=== PATIENT | female | born 1925 | race Asian ===

== ENCOUNTER 2016-04-27 10:51 | Emergency (ER) | payer MEDICARE, OTHER ==
--- NOTE | 2016-04-27 11:00 | ER Document Report ---
ED Medical Screen (RME) - General Stated Complaint: FELL/DIZZINESS Mode of Arrival: Wheelchair Information source: Patient, Relative Notes: Patient has had dizzy spells for the past 3 weeks. Patient fell at home a few days ago hurting her left lower rib area. Patient with nausea and vomiting today. No diarrhea. Patient did not take her blood pressure medication today. Patient reports headache that started last night that is improved today but still there. hx: Hypertension, dyslipidemia I have greeted and performed a rapid initial assessment of this patient. A comprehensive ED assessment and evaluation of the patient, analysis of test results and completion of the medical decision making process will be conducted by additional ED providers. - Related Data Allergies/Adverse Reactions: No Known Allergies Allergy (Verified 04/27/16 10:56) Physical Exam - Respiratory Respiratory status: No respiratory distress Chest status: Tender - Left lower anterior costal tenderness
[2016-04-27 11:49] LABS: ABSOLUTE EOSINOPHILS # (AUTO) 0.1 10^3/uL (0.0-0.6); ABSOLUTE LYMPHOCYTES (AUTO) 1.8 10^3/uL (0.5-4.7); ABSOLUTE MONOCYTES (AUTO) 0.5 10^3/uL (0.1-1.4); ABSOLUTE NEUT (AUTO) 5.9 10^3/uL (1.7-8.2); BASOPHILS % (AUTO) 0.5 % (0-2); EOSINOPHILS % (AUTO) 1.6 % (0-6); HEMATOCRIT 32.3 % (36.0-47.0); HEMOGLOBIN 10.8 g/dL (12.0-15.5); HGB HCT DIFFERENCE 0.1; LYMPHOCYTES % (AUTO) 21.4 % (13-45); MEAN CORPUSCULAR HEMOGLOBIN 33.6 pg (27.0-33.4); MEAN CORPUSCULAR HGB CONC 33.5 g/dL (32.0-36.0); MEAN CORPUSCULAR VOLUME 100 fl (80-97); MONOCYTES % (AUTO) 6.1 % (3-13); RED BLOOD COUNT 3.22 10^6/uL (3.72-5.28); RED CELL DISTRIBUTION WIDTH 13.4 % (11.5-14.0); SEGMENTED NEUTROPHILS % (AUTO) 70.4 % (42-78); WHITE BLOOD COUNT 8.4 10^3/uL (4.0-10.5)
[2016-04-27 11:55] LABS: ALANINE AMINOTRANSFERASE 31 U/L (9-52); ALBUMIN 3.9 g/dL (3.5-5.0); ALKALINE PHOSPHATASE 85 U/L (38-126); ANION GAP 12 (5-19); ASPARTATE AMINO TRANSFERASE 33 U/L (14-36); BILIRUBIN,TOTAL 0.9 mg/dL (0.2-1.3); BLOOD UREA NITROGEN 26 mg/dL (7-20); CALCIUM 9.7 mg/dL (8.4-10.2); CARBON DIOXIDE 25 mmol/L (22-30); CHLORIDE 103 mmol/L (98-107); CREATINE KINASE 157 U/L (30-135); CREATININE RESULT 1.15 mg/dL (0.52-1.25); GLUCOSE 115 mg/dL (75-110); LIPASE 146.3 U/L (23-300); MAGNESIUM 2.1 mg/dL (1.6-2.3); POTASSIUM 4.8 mmol/L (3.6-5.0); SODIUM 139.5 mmol/L (137-145); TOTAL PROTEIN 7.8 g/dL (6.3-8.2)
[2016-04-27] MEDS ORDERED: MECLIZINE HCL 25 MG TABLET PO ONE (11:59)
[2016-04-27] MEDS ORDERED: CLONIDINE HCL 0.1 MG TABLET PO ONE (11:59)
[2016-04-27 12:21] LABS: CREATINE KINASE MB 0.23 ng/mL (<4.55)
[2016-04-27 12:22] LABS: TROPONIN I < 0.012 ng/mL
[2016-04-27 13:32] LABS: APPEARANCE,URINE CLEAR; BILIRUBIN,URINE NEGATIVE (NEGATIVE); GLUCOSE, URINE NEGATIVE (NEGATIVE); KETONES,URINE NEGATIVE (NEGATIVE); LEUKOCYTE ESTERASE,URINE NEGATIVE (NEGATIVE); NITRITE,URINE NEGATIVE (NEGATIVE); PROTEIN,URINE 30 mg/dL (NEGATIVE); URINE SPECIFIC GRAVITY 1.012; UROBILINOGEN,URINE NEGATIVE mg/dL (<2.0)
--- NOTE | 2016-04-27 13:52 | ER Document Report ---
ED General - General Chief Complaint: Dizziness Stated Complaint: FELL/DIZZINESS Mode of Arrival: Wheelchair TRAVEL OUTSIDE OF THE [place] IN LAST 30 DAYS: No - HPI Patient complains to provider of: multiple falls dizziness Notes: Patient coming in today for evaluation after having multiple falls and dizziness ongoing for last 3 weeks. Patient states dizziness happens when she is ambulating or when she change in position. Patient does have a history of hypertension states that she did not take her blood pressure medications morning as that she did not eat any food. Patient denies any direct head trauma patient otherwise upon evaluation is lying in stretcher comfortably with no complaints of her dizziness. Patient denies recent antibiotics travel change in medications recent trauma states last fall was approximately 2 days ago - Related Data Allergies/Adverse Reactions: No Known Allergies Allergy (Verified 04/27/16 10:56) Past Medical History - General Information source: Patient, Relative - Social History Smoking Status: Unknown if Ever Smoked Chew tobacco use (# tins/day): No Frequency of alcohol use: None Drug Abuse: None Family History: Reviewed & Not Pertinent Patient has suicidal ideation: No Patient has homicidal ideation: No Renal/ Medical History: Denies: Hx Peritoneal Dialysis Review of Systems - Review of Systems Constitutional: No symptoms reported EENT: No symptoms reported Cardiovascular: No symptoms reported Respiratory: No symptoms reported Gastrointestinal: No symptoms reported Genitourinary: No symptoms reported Female Genitourinary: No symptoms reported Musculoskeletal: No symptoms reported Skin: No symptoms reported Hematologic/Lymphatic: No symptoms reported Neurological/Psychological: Other - Dizziness frequent falls -: Yes All other systems reviewed and negative Physical Exam - Vital signs Vitals: Temp Pulse Resp BP Pulse Ox 97.8 F 103 H 16 207/106 H 99 04/27/16 10:57 04/27/16 10:57 04/27/16 10:57 04/27/16 10:57 04/27/16 10:57 Interpretation: Normal - General General appearance: Appears well, Alert - HEENT Head: Normocephalic, Atraumatic Eyes: Normal Pupils: PERRL - Respiratory Respiratory status: No respiratory distress Chest status: Nontender Breath sounds: Normal Chest palpation: Normal - Cardiovascular Rhythm: Regular Heart sounds: Normal auscultation Murmur: No - Abdominal Inspection: Normal Distension: No distension Bowel sounds: Normal Tenderness: Nontender Organomegaly: No organomegaly - Back Back: Normal, Nontender - Extremities General upper extremity: Normal inspection, Nontender, Normal color, Normal ROM , Normal temperature General lower extremity: Normal inspection, Nontender, Normal color, Normal ROM , Normal temperature, Normal weight bearing. No: Emanuel's sign - Neurological Neuro grossly intact: Yes Cognition: Normal Orientation: AAOx4 [place] Coma Scale Eye Opening: Spontaneous R[place]un Coma Scale Verbal: Oriented [place] Coma Scale Motor: Obeys Commands [place]oy Coma Scale Total: 15 Speech: Normal Motor strength normal: LUE, RUE, LLE, RLE Sensory: Normal - Psychological Associated symptoms: Normal affect, Normal mood - Skin Skin Temperature: Warm Skin Moisture: Dry Skin Color: Normal Course - Re-evaluation Re-evalutation: 04/27/16 15:08 Patient's orthostatics were positive patient's blood pressure went from approximate systolic of 192 a systolic of 150 further increase in her heart rate greater than 10 beats. Patient was most magneton. More likely patient is suffering from orthostatic dizziness. Explained this to the patient we did give patient a copy of orthostatic testing here blood work and CT scan of the head reveal no other pathology. Recommended patient follow-up with her primary care physician for further management also possible change of blood pressure medications. At this time we will treat the patient with meclizine and compression stockings. Patient agrees with plan to be discharged home. Patient was encouraged to continue to use her walker at home - Vital Signs Vital signs: Temp Pulse Resp BP Pulse Ox 97.5 F 84 19 156/97 H 98 04/27/16 14:14 04/27/16 13:24 04/27/16 13:56 04/27/16 13:56 04/27/16 13:56 - Laboratory Result Diagrams: 04/27/16 11:38 04/27/16 11:10 Laboratory results interpreted by me: 04/27/16 04/27/16 04/27/16 11:10 11:38 13:15 RBC 3.22 L Hgb 10.8 L Hct 32.3 L MCV 100 H MCH 33.6 H BUN 26 H Est GFR ( Amer) 54 L Est GFR (Non-Af Amer) 44 L Glucose 115 H Creatine Kinase 157 H Urine Protein 30 H Urine Blood SMALL H Discharge - Discharge Clinical Impression: Orthostatic dizziness Condition: Good Disposition: HOME, SELF-CARE Instructions: Dizziness ([facility]), Meclizine ([facility]) Additional Instructions: I do believe that your dizziness may be due to orthostasis or whenever you changed position there is a change or a drop in blood pressure. However recommend following up with your primary care physician for possible adjustment of your blood pressure medications. Return to ER symptoms worsen. Take medications as prescribed We will try a short course of meclizine to see this also is in your dizziness at also recommended wearing compression stockings. Prescriptions: Compression Socks, Medium [Futuro Restoring] 1 each MC DAILY #1 each Meclizine HCl [Antivert 25 mg Tablet] 25 mg PO TID PRN #21 tablet PRN Reason: Referrals: CLARA PINEDA DO [Primary Care Provider] - Follow up as needed
[2016-04-27 14:08] VITALS: BP 156/97
--- NOTE | 2016-04-27 22:00 | EKG REPORT ---
SEVERITY:- ABNORMAL ECG - SINUS RHYTHM CONSIDER LEFT VENTRICULAR HYPERTROPHY : Confirmed by: Heriberto Gotti 27-Apr-2016 21:59:31
== END 2016-04-27 14:14 | disposition home or self-care (01) ==
LOC: ER 10:51
DX: R42 Dizziness and giddiness (principal); W19.XXXA Unspecified fall, initial encounter
CPT/HCPCS: 93005; 99284; 51701; 36415; 82553; 82550; 83690; 83735; 85025; 80053; 81001; 84484; 71020; 70450; 93010; A9270 ×2

== ENCOUNTER 2016-05-12 11:27 | Emergency (ER) | payer MEDICARE, OTHER ==
--- NOTE | 2016-05-12 11:49 | ER Document Report ---
ED Medical Screen (RME) - General Stated Complaint: RECTAL BLEEDING Time seen by provider: 11:44 Mode of Arrival: Wheelchair Information source: Patient Notes: 89-year-old female with a history of rectal bleeding last year in [place] equiring a blood transfusion is complaining of rectal bleeding night and Thursday after having a hard constipated stool causing anal and vaginal pain . Had a normal bowel movement today with only a blood stain. Dr. Crystal Center to the emergency room to be evaluated. I have greeted and performed a rapid initial assessment of this patient. A comprehensive ED assessment, evaluation of the patient, analysis of test results , and completion of the medical decision making process will be conducted by additional ED providers. TRAVEL OUTSIDE OF THE [place] IN LAST 30 DAYS: No - Related Data Allergies/Adverse Reactions: No Known Allergies Allergy (Verified 04/27/16 10:56) Past Medical History Renal/ Medical History: Denies: Hx Peritoneal Dialysis Physical Exam - Vital signs Vitals: Temp Pulse Resp BP Pulse Ox 97.4 F 107 H 24 H 182/94 H 99 05/12/16 11:36 05/12/16 11:36 05/12/16 11:36 05/12/16 11:36 05/12/16 11:36 Course - Vital Signs Vital signs: Temp Pulse Resp BP Pulse Ox 97.4 F 107 H 24 H 182/94 H 99 05/12/16 11:36 05/12/16 11:36 05/12/16 11:36 05/12/16 11:36 05/12/16 11:36
[2016-05-12 12:20] LABS: ABSOLUTE EOSINOPHILS # (AUTO) 0.2 10^3/uL (0.0-0.6); ABSOLUTE LYMPHOCYTES (AUTO) 1.8 10^3/uL (0.5-4.7); ABSOLUTE MONOCYTES (AUTO) 0.5 10^3/uL (0.1-1.4); ABSOLUTE NEUT (AUTO) 3.5 10^3/uL (1.7-8.2); BASOPHILS % (AUTO) 0.7 % (0-2); EOSINOPHILS % (AUTO) 2.8 % (0-6); HEMATOCRIT 26.5 % (36.0-47.0); HGB HCT DIFFERENCE 0.5; LYMPHOCYTES % (AUTO) 29.7 % (13-45); MEAN CORPUSCULAR HEMOGLOBIN 33.9 pg (27.0-33.4); MEAN CORPUSCULAR VOLUME 100 fl (80-97); MONOCYTES % (AUTO) 7.9 % (3-13); RED BLOOD COUNT 2.65 10^6/uL (3.72-5.28); RED CELL DISTRIBUTION WIDTH 13.4 % (11.5-14.0); SEGMENTED NEUTROPHILS % (AUTO) 58.9 % (42-78)
[2016-05-12 12:42] LABS: ALANINE AMINOTRANSFERASE 24 U/L (9-52); ALBUMIN 3.7 g/dL (3.5-5.0); ALKALINE PHOSPHATASE 80 U/L (38-126); ANION GAP 10 (5-19); ASPARTATE AMINO TRANSFERASE 30 U/L (14-36); BILIRUBIN,TOTAL 0.8 mg/dL (0.2-1.3); BLOOD UREA NITROGEN 29 mg/dL (7-20); CALCIUM 9.1 mg/dL (8.4-10.2); CARBON DIOXIDE 25 mmol/L (22-30); CHLORIDE 108 mmol/L (98-107); CREATININE RESULT 1.33 mg/dL (0.52-1.25); GLUCOSE 150 mg/dL (75-110); POTASSIUM 4.4 mmol/L (3.6-5.0); SODIUM 143.4 mmol/L (137-145); TOTAL PROTEIN 6.7 g/dL (6.3-8.2)
[2016-05-12 14:45] VITALS: BP 154/76
--- NOTE | 2016-05-12 14:46 | ER Document Report ---
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 pt notes that she bled on thursday and it has since resolved. denies any abd pain TRAVEL OUTSIDE OF THE [place] IN LAST 30 DAYS: No - HPI Onset: Last week Onset/Duration: Persistent Quality of pain: No pain Severity: Mild Pain Level: Denies Associated symptoms: Other Exacerbated by: Denies Relieved by: Denies Similar symptoms previously: Yes Recently seen / treated by doctor: Yes - Related Data Allergies/Adverse Reactions: No Known Allergies Allergy (Verified 05/12/16 11:50) Past Medical History - General Information source: Patient - Social History Smoking Status: Never Smoker Cigarette use (# per day): No Chew tobacco use (# tins/day): No Smoking Education Provided: No Frequency of alcohol use: None Drug Abuse: None Family History: Reviewed & Not Pertinent Patient has suicidal ideation: No Patient has homicidal ideation: No Renal/ Medical History: Denies: Hx Peritoneal Dialysis Review of Systems - Review of Systems Notes: PHYSICAL EXAMINATION: GENERAL: Well-appearing, well-nourished and in no acute distress. HEAD: Atraumatic, normocephalic. EYES: Pupils equal round and reactive to light, extraocular movements intact, conjunctiva are normal. ENT: Nares patent, oropharynx clear without exudates. Moist mucous membranes. NECK: Normal range of motion, supple without lymphadenopathy LUNGS: Breath sounds clear to auscultation bilaterally and equal. No wheezes rales or rhonchi. HEART: Regular rate and rhythm without murmurs ABDOMEN: Soft, nontender, nondistended abdomen. No guarding, no rebound. No masses appreciated. Female : Rectal examination performed with nurse in room No significant bleeding Musculoskeletal: Normal range of motion, no pitting or edema. No cyanosis. NEUROLOGICAL: Cranial nerves grossly intact. Normal speech, normal gait. Normal sensory, motor exams PSYCH: Normal mood, normal affect. SKIN: Warm, Dry, normal turgor, no rashes or lesions noted. Physical Exam - Vital signs Vitals: Temp Pulse Resp BP Pulse Ox 97.4 F 107 H 24 H 182/94 H 99 05/12/16 11:36 05/12/16 11:36 05/12/16 11:36 05/12/16 11:36 05/12/16 11:36 Course - Re-evaluation Re-evalutation: 05/12/16 14:45 Physical examination noted no significant abnormality, patient's blood in his 9 , does not meet transfusion criteria. I believe her bleeding is secondary to a rectal fissure in the patients history. Vital signs are stable at this time. Patient will be given GI follow-up and states she will see them After performing a Medical Screening Examination, I estimate there is LOW risk for ACUTE APPENDICITIS, BOWEL OBSTRUCTION, ACUTE CHOLECYSTITIS, PERFORATED DIVERTICULITIS, INCARCERATED HERNIA, PANCREATITIS, PELVIC INFLAMMATORY DISEASE, PERFORATED ULCER, ECTOPIC , or TUBO-OVARIAN ABSCESS, thus I consider the discharge disposition reasonable. Also, there is no evidence or peritonitis , sepsis, or toxicity. The patient and I have discussed the diagnosis and risks , and we agree with discharging home with close follow-up with the understanding that symptoms and presentations can change. We also discussed returning to the Emergency Department immediately if new or worsening symptoms occur. We have discussed the symptoms which are most concerning (e.g., bloody stool, fever, changing or worsening pain, vomiting) that necessitate immediate return. - Vital Signs Vital signs: Temp Pulse Resp BP Pulse Ox 97.4 F 107 H 24 H 182/94 H 99 05/12/16 11:36 05/12/16 11:36 05/12/16 11:36 05/12/16 11:36 05/12/16 11:36 - Laboratory Result Diagrams: 05/12/16 11:55 05/12/16 11:55 Laboratory results interpreted by me: 05/12/16 05/12/16 11:55 11:55 RBC 2.65 L Hgb 9.0 L Hct 26.5 L MCV 100 H MCH 33.9 H Chloride 108 H BUN 29 H Creatinine 1.33 H Est GFR ( Amer) 45 L Est GFR (Non-Af Amer) 38 L Glucose 150 H Discharge - Discharge Clinical Impression: Rectal bleeding Condition: Stable Disposition: HOME, SELF-CARE Additional Instructions: Rectal Bleeding, Unclear Cause No definite cause has been found for the rectal bleeding you have experienced. Among the possible causes are internal or external hemorrhoids ( internal hemorrhoids can't be felt on the outside), an anal fissure (a crack at the anal ring), infections or inflammatory diseases of the colon, tumors or polyps, or diverticula (diverticula are outpouchings from the colon wall). To establish a cause for your bleeding (or at least make certain there is no serious problem such as a tumor), further evaluation will be necessary. This may include special X-rays, or passage of a scope up into the colon. Be sure to keep your follow-up appointment. Should you develop brisk bleeding, abdominal pain, fever, lightheadedness, or fever, call the doctor or return at once. Referrals: ANGEL TURNER MD [ACTIVE STAFF] - Follow up tomorrow
== END 2016-05-12 14:52 | disposition home or self-care (01) ==
LOC: ER 11:27
DX: K62.5 Hemorrhage of anus and rectum (principal); K60.2 Anal fissure, unspecified
CPT/HCPCS: 36415; 80053; 82272; 85025; 86850; 86900; 86901; 99283